=== PATIENT | male | born 1965 | race Caucasian/White ===

== ENCOUNTER 2021-10-15 06:11 | Observation (INO) ==
--- NOTE | 2021-10-01 14:39 | Anesthesiology Consultation ---
Date of Service October 01, 2021 Assessment & Plan (1) Encounter for pre-operative examination: - awaiting medical clearance, 10/07/21. - COVID screening: Per assessment on 10/01/2021: Travel screen negative, no known COVID-19 positive contacts or current COVID-19 related symptoms in past 2 weeks. Surgeon arranging preop COVID testing, scheduled 10/13/2021. Awaiting results. Chart Review Chart Review: Pending: Refer to Additional Notes / Consult section and Patient seen in Pre Admission Testing Teaching & Discussion Pre-Anesthesia Teaching/Discussion Notes: Instructed NPO after midnight before surgery, except medications with 15 cc of water. Medication instructions provided according to the PAT guidelines. History Surgery Operation Date: 10/15/21 11:05 Proposed Procedures p C5-C7 Anterior Cervical Discectomy and Fusion Spinal Cord Monitoring - Russ Dawson DO Height/Weight Height: 5 ft 9 in Weight: 96 kg Allergies Allergy/AdvReac Type Severity Reaction Status Date / Time No Known Allergies Allergy Verified 09/28/21 07:33 Medications Home Medications Medication Instructions Recorded Confirmed Last Taken No Known Home Medications 09/28/21 09/28/21 Unknown Additional Notes: No supplements or OTC medications. Past Medical History Medical History (Updated 10/04/21 @ 08:09 by Megan Lee PA-C) Degenerative disc disease Diverticular disease History of COVID-30 May 2021 > not hospitalized, mild symptoms Sleep apnea suspected per pt, heavy snoring, denies witnessed apneas or sleep study Small bowel obstruction history of SBOs Patient denies h/o stroke, seizures, heart attack, heart failure, DM, HTN, blood clots or blood transfusions. Exercise / Class Metabolic Activity II 4-5 Yardwork/Stairs/Walk up hill (denies CP or SOB with 1 FOS) Past Family History Family History Mother Diabetes Past Surgical History Surgical History History of appendectomy History of colon resection 10 inches removed due to diverticulitis History of colonoscopy History of tooth extraction Past Anesthesia History No Hx of Anesthesia Complications and No Family Hx of Anesthesia Complications History of PONV No Hx of PONV and No Hx of Motion Sickness Social History Smoking Status: Former smoker tobacco type: smokeless tobacco Do You Dip or Chew Tobacco: Yes (advised npo status) Smoking End Date: 25 yrs Hx Alcohol Use: No Hx Substance Use: No substance use type: does not use Review of Systems Patient denies chest pain, shortness of breath, dyspnea on exertion, reflux, fever, chills, cough, wheezing, or palpitations. Physical Exam Vital Signs Vitals BP 128/83 P 61 TEMP 98.1 SP02 96% on RA RESP 17 Physical Full cervical extension range of motion without pain TMD 3.5 finger breaths Mallampati Score 3 Dentition: intact, multiple missing teeth lower bilat and one upper left side, one chipped tooth-left lower back; denies loose teeth, caps/crowns, implants or bridges Lungs: normal respiratory effort. Clear throughout to auscultation, no adventitious breath sounds Cardiac: regular rate and rhythm, no murmurs noted Carotid arteries: negative bruit bilat Lab Results Anesthesia Preop Results Results Anesthesia Widget: WBC 6.28 K/uL (4.8-10.8) 10/01/21 Hgb 14.9 g/dL (14.0-18.0) 10/01/21 Hct 43.7 % (42-52) 10/01/21 Plt 269 K/uL (130-400) 10/01/21 Na 139 mmol/L (136-145) 10/01/21 K 3.9 mmol/L (3.5-5.1) 10/01/21 Cl 104 mmol/L (98-107) 10/01/21 CO2 29 mmol/L (21-32) 10/01/21 BUN 12 mg/dl (6-23) 10/01/21 Creat 1.00 mg/dl (0.6-1.4) 10/01/21 Glucose Level 101 mg/dl (70-99(Fasting)) H 10/01/21 PT 10.7 Seconds (9.0-12.0) 10/01/21 PTT 26.8 Seconds (21.0-31.0) 10/01/21 INR 1.0 (0.9-1.1) 10/01/21 Urine Color Yellow 10/01/21 Urine Appearance Clear (Clear) 10/01/21 Urine pH 5.5 (4.5-7.5) 10/01/21 Urine Specific [place] 1.015 (1.000-1.030) 10/01/21 Urine Protein Negative (Negative) 10/01/21 Urine Glucose (UA) Negative (Negative) 10/01/21 Urine Ketones Negative (Negative) 10/01/21 Urine Blood Negative (Negative) 10/01/21 Urine Nitrite Negative (Negative) 10/01/21 Urine Bilirubin Negative (Negative) 10/01/21 Urine Urobilinogen Negative (Negative) 10/01/21 Urine Leukocyte Esterase Negative (Negative) 10/01/21 Blood Type O Positive 10/01/21 Antibody Screen NEGATIVE 10/01/21 Testing Electrocardiogram Date: 10/01/21 Sinus bradycardia, rate 55 bpm Incomplete RBBB Chest X-Ray Date: 10/01/21 The cardiomediastinal silhouette is unremarkable. The lungs and pleural spaces are clear. There is no pneumothorax. The bony thorax appears intact. IMPRESSION: No active disease in the chest.
[~2021-10-15 06:11] MED LIST: ACETAMINOPHEN 500 MG TAB PO SCH; CeleBREX 200 MG CAP PO SCH; GABAPENTIN 600 MG DOSE PO SCH; LACTATED RINGER'S 1,000 ML IV SCH; ceFAZolin 2000MG 2,000 MG/15 ML SYR IV SCH
[2021-10-15] MEDS ORDERED: PROPOFOL IV EMULSION 10 MG/ML 20 ML VIAL IV ONE (06:44)
[2021-10-15] MEDS ORDERED: ROCURONIUM BROMIDE 10 MG/ML 5 ML VIAL IV ONE (06:44)
[2021-10-15] MEDS ORDERED: ONDANSETRON INJ 2 MG/ML 2 ML VIAL ONE (06:44)
[2021-10-15] MEDS ORDERED: MIDAZOLAM HCL 1 MG/ML 2ML VIAL ONE (06:44)
[2021-10-15] MEDS ORDERED: DEXAMETHASONE SOD INJ 4 MG/ML VIAL ONE (06:44)
[2021-10-15] MEDS ORDERED: HYDROmorphone INJ 2 MG/ML SYR/VIAL ONE (06:44)
[2021-10-15] MEDS ORDERED: NEOSTIGMINE METHYLSULFATE 1 MG/ML 10ML VIAL ONE (06:44)
[2021-10-15] MEDS ORDERED: SUCCINYLCHOLINE CHLORIDE 20 MG/ML 10 ML VIAL IV ONE (06:44)
[2021-10-15] MEDS ORDERED: fentaNYL citrate 100 MCG/2 ML VIAL ONE (06:44)
[2021-10-15] MEDS ORDERED: GLYCOPYRROLATE 0.2 MG/ML VIAL ONE (06:44)
[2021-10-15] MEDS ORDERED: LIDOCAINE 2% 2 ML VIAL/AMP(20MG/ML) INFIL ONE (06:44)
[2021-10-15] MEDS ORDERED: ONDANSETRON INJ 2 MG/ML 2 ML VIAL IV PRN ×2 (06:54→11:16)
[2021-10-15] MEDS ORDERED: ePHEDrine sulfate 50 MG/ML AMP IV PRN (06:54)
[2021-10-15] MEDS ORDERED: ATROPINE SULFATE 0.1 MG/ML 10ML SYR IV PRN (06:54)
--- NOTE | 2021-10-15 07:34 | History & Physical Bridge Note ---
Date of Service October 15, 2021 History & Physical Bridge Note I have examined the patient, reviewed the History & Physical and in the interval since the performance of the History & Physical I have noted the following changes of clinical significance: no changes noted
--- NOTE | 2021-10-15 07:36 | History & Physical Report ---
Date of Service October 15, 2021 Assessment & Plan (1) Cervical stenosis of spinal canal: Plan: C5-C7 anterior cervical discectomy and fusion History of Present Illness Chief Complaint: Neck and bilateral arm pain Primary Care Provider: Ras Bose DO This is a 56-year-old male presents with current persistent neck and arm pain after failed course of nonoperative care is here for surgical invention. Allergies Allergy/AdvReac Type Severity Reaction Status Date / Time No Known Allergies Allergy Verified 10/15/21 06:35 Home Medications Medication Instructions Recorded Confirmed Type No Known Home Medications 09/28/21 09/28/21 History Past Med/Surg History Medical History (Updated 10/15/21 @ 07:36 by Russ Dawson DO) Degenerative disc disease Diverticular disease History of COVID-30 May 2021 > not hospitalized, mild symptoms Sleep apnea suspected per pt, heavy snoring, denies witnessed apneas or sleep study Small bowel obstruction history of SBOs Surgical History History of appendectomy History of colon resection 10 inches removed due to diverticulitis History of colonoscopy History of tooth extraction Family History Mother Diabetes Social History Smoking Status: Former smoker Smoking End Date: 25 yrs; Second Hand Exposure: No; Do You Dip or Chew Tobacco: Yes (advised npo status); Tobacco Cessation Education Requested by Patient: No Hx Alcohol Use: No Hx Substance Use: No Preferred Language: [place] Islander Communication Ability: Effective Anchor Tack Puller Required: No Beliefs That Will Affect Care: None Current Living Situation: Spouse Other Information That Helps Us Care for You: No Feels Safe at Home: Yes Safety Concerns: Feels Safe At This Time Assistive Devices: Contacts and Glasses Physical Exam Physical Exam: Patient is alert and oriented Heart regular rate and rhythm Lungs clear Results & Data ([facility]) Vital Signs (Past 12 Hours) Vital Signs Temp Pulse Resp BP Pulse Ox 10/15/21 06:40 36.6 C 61 20 134/80 95
[2021-10-15] MEDS ORDERED: ceFAZolin 330 MG/ML 1 GM VIAL ONE (07:37)
[2021-10-15] MEDS ORDERED: FLOSEAL HEMOSTATIC MATRIX 10ML TOP ONE (09:15)
--- NOTE | 2021-10-15 09:31 | Operative Report ---
Post Operative Report Pre & Post Diagnosis Operation Date: 10/15/21 07:45 Pre-Op Diagnosis: Spinal Stenosis, Cervical Region Post-Op Diagnosis: Spinal Stenosis, Cervical Region I identified the patient and participated in the time-out.: Yes Procedure Operation Date: 10/15/21 07:45 Actual Procedures #1 anterior cervical discectomy with bilateral foraminotomies C5-C6 C6-C7. #2 anterior cervical arthrodesis C5-C6 C6-C7. #3 placement 8 mm spiral cage at C5- C6 and 7 mm spiral cage at C6-C7 both filled with I factor. #4 application of 5 complete and screws from C5-C7. Surgeon Russ Dawson, DO [employer] Administrator Lon Tracey Estimated Blood Loss 10 Findings Consistent with Post-Op Diagnosis Specimens None Indications This is a 56-year-old male who presents with current persistent cervical radiculopathy. After extensive course of nonoperative care is here for surgical invention. Description of Procedure Patient was met with identified informed consent obtained. Patient was then taken to the operative suite underwent a patient placed in supine position just table at [place] head of acquisitions. All bony prominences well-padded eyes inspected to ensure no external pressure placed upon them. This point the anterior cervical spine was prepped and draped in a sterile fashion. The assistance of fluoroscopy identified the C6 vertebral body and a transverse incision was placed along the right anterior aspect of the cervical spine overlying his region. Blunt dissection with assistance of bipolar electrocautery was performed down to and exposing the anterior cervical spine from C5-C7. Several 10 retractors placed. Then performed a complete discectomy at C5-C6 out to the uncovertebral joints bilaterally. [place] distracting pins were utilized to assist in visualization. Removed all posterior annular fibers and longitudinal ligament bilateral foraminotomies performed. Endplates burred to subcortical bleeding bone and a 8 mm spiral cage with I factor tapped in position. Then proceeded to C6-C7. Complete discectomy was again performed out to the uncovertebral's bilaterally. [place] distracting pins again utilized. Removed all posterior annular fibers longitudinal ligament bilateral foraminotomies performed. Endplates burred to subcortically bone and 7 mm spiral cage filled I factor tapped in position. Distracting apparatus was removed all anterior osteophytes burred to smooth cortical surface and a 5 complete screws applied with the assistance of fluoroscopy. The incision was then copiously irrigated explored to ensure no damage to surrounding structures remaining bleeding. 10 round DEWAYNE drain inserted. The incision was then closed with 2 Vicryl in a fashion of 4 Monocryl for final skin closure. Steri-Strip sterile dressings placed. Patient waken taken to PACU stable condition. Please note spinal cord monitoring was utilized at the procedure no changes noted. Lastly Lon Tracey was present at the entire surgery and while the patient positioning complex portions of the surgery and final skin closure. I attest to the content of the Intraoperative Record and any orders documented therein. Any exceptions are noted below.
--- NOTE | 2021-10-15 09:47 | Fluoroscopy Report ---
FL cervical 2-3V HISTORY: 56 years-old Male C5-7 ACDF COMPARISON: None TECHNIQUE: 2 spot fluoroscopic images of the cervical spine were obtained utilizing 11.9 seconds fluo roscopy time FINDINGS: Anterior plate and screw fusion with discectomy noted at what appears to be the C5-C7 levels. C6 and C7 are suboptimally visualized on the lateral projection secondary to positioning. The visualized grupo dware appears intact. A radiopaque surgical sponge projects anterior to the surgical levels. Endotrac heal tube is present. IMPRESSION: Fluoroscopic assistance as above. ACT 112: Negative or not required by law. The above report was generated using voice recognition software. It may contain grammatical, syntax o r spelling errors. Electronically signed by: Cornelio Fitzpatrick M.D. 10/15/2021 9:46 AM
[2021-10-15] MEDS: fentaNYL citrate 100 MCG/2 ML VIAL IV PRN ×3 (09:57→10:24)
--- NOTE | 2021-10-15 10:38 | Anesthesiology Progress Note ---
Date of Service October 15, 2021 Anesthesia Post Procedure Vital Signs Vital Signs: Temp Pulse Resp BP Pulse Ox 10/15/21 10:25 50 L 16 136/90 98 10/15/21 10:15 46 L 16 157/90 H 97 10/15/21 10:05 46 L 16 165/96 H 98 10/15/21 09:55 47 L 16 177/90 H 96 10/15/21 09:45 97.2 F L 48 L 18 159/94 H 97 10/15/21 06:40 97.9 F 61 20 134/80 95 Transfer of Care Handoff Completed per policy Notes Mental Status: alert / awake / arousable and participated in evaluation Patient Amnestic to Procedure: Yes Nausea / Vomiting: adequately controlled Pain: adequately controlled Airway Patency, RR, SpO2: stable & adequate BP & HR: stable & adequate Hydration State: stable & adequate Anesthetic Complications: no major complications apparent and Pt Satisfied with anesthetic care
[2021-10-15] MEDS ORDERED: RACEPINEPHRINE 2.25% NEBU SOLN 0.5 ML VIAL INH PRN (11:16)
[2021-10-15] MEDS ORDERED: hydrOXYzine HCl 25 MG TAB PO PRN (11:16)
[2021-10-15] MEDS ORDERED: FAMOTIDINE 20 MG TAB PO PRN (11:16)
[2021-10-15] MEDS ORDERED: NALOXONE HCL 0.4 MG/1 ML VIAL/CARP IV PRN (11:16)
[2021-10-15] MEDS ORDERED: HYDROmorphone INJ 0.5 MG/0.5 ML SYR IV PRN (11:16)
[2021-10-15] MEDS ORDERED: MAGNESIUM HYDROXIDE SUSP 30 ML UDC PO PRN (11:16)
[2021-10-15] MEDS ORDERED: ACETAMINOPHEN 1,000 MG/100 ML VIAL IV PRN (11:16)
[2021-10-15] MEDS ORDERED: DO NOT ADMINISTER FLU VACCINE PRN (11:16)
[2021-10-15] MEDS ORDERED: HYDROmorphone INJ 1 MG/ML SYRINGE IV PRN (11:16)
[2021-10-15] MEDS ORDERED: dexAMETHasone 8 MG in SYRINGE 0 ML IV PRN (11:16)
[2021-10-15] MEDS ORDERED: ALUMINUM/MAGNESIUM SUSP 30 ML UDC PO PRN (11:16)
[2021-10-15] MEDS ORDERED: DO NOT ADMINISTER PNEUMOCOCCAL VACCINE PRN (11:16)
[2021-10-15] MEDS ORDERED: PROMETHAZINE HCL 12.5 MG in SODIUM CHLORIDE 0.9% 50 ML IV PRN (11:16)
[2021-10-15] MEDS ORDERED: ONDANSETRON 4 MG OD TAB PO PRN (11:16)
[2021-10-15] MEDS ORDERED: METOCLOPRAMIDE HCL INJ 5 MG/ML 2 ML VIAL IV PRN (11:16)
[2021-10-15] MEDS ORDERED: LORazepam 2 MG/1 ML VIAL IV PRN (11:16)
[2021-10-15] MEDS ORDERED: bisacodyL 10 MG SUPP PR PRN (11:16)
[2021-10-15] MEDS ORDERED: SOD PHOSPHATE/SOD BIPHOSPHATE ENEMA 132 ML BTL PR PRN (11:16)
[2021-10-15] MEDS ORDERED: diphenhydrAMINE Capsule 25 MG CAP PO PRN (11:16)
[2021-10-15] MEDS ORDERED: LORazepam 0.5 MG TAB PO PRN (11:16)
[2021-10-15] MEDS: LACTATED RINGER'S 1,000 ML IV SCH ×2 (13:14→20:41)
[2021-10-15] MEDS: oxyCODONE HCL IR 5 MG TAB (IMMEDIATE RELEASE) PO PRN ×2 (14:12→20:36)
[2021-10-15] MEDS: traMADol HCL 50 MG TABLET PO PRN ×2 (15:15→19:04)
[2021-10-15] MEDS: ceFAZolin 2000MG 2,000 MG/15 ML SYR IV SCH (16:47)
[2021-10-15] MEDS ORDERED: DOCUSATE SODIUM/SENNA 50/8.6MG TAB PO SCH (21:00)
[2021-10-16] MEDS: ceFAZolin 2000MG 2,000 MG/15 ML SYR IV SCH (00:02)
[2021-10-16] MEDS: ACETAMINOPHEN 500 MG TAB PO PRN ×2 (00:02→08:51)
[2021-10-16] MEDS: traMADol HCL 50 MG TABLET PO PRN ×3 (00:03→11:43)
[2021-10-16] MEDS ORDERED: POLYETHYLENE (MIRALAX) 17 GM PACK PO SCH (06:00)
[2021-10-16] MEDS: LACTATED RINGER'S 1,000 ML IV SCH (06:22)
[2021-10-16 06:57] LABS: Basophils # (auto) 0.01 K/uL (0-0.2); Basophils % (auto) 0.1 %; Eosinophils # (auto) 0.01 K/uL (0-0.5); Eosinophils % (auto) 0.1 %; Hemoglobin 14.3 g/dL (14.0-18.0); Immature Granulocytes # (auto) 0.05 K/uL (0.00-0.02); Immature Granulocytes % (auto) 0.3 %; Lymphocytes # (auto) 1.24 K/uL (1.2-3.4); Lymphocytes % (auto) 7.9 %; Mean Corpuscular Hemoglobin 31.2 pg (25-34); Mean Corpuscular Hgb Conc 34.9 g/dL (32-36); Mean Corpuscular Volume 89.5 fL (80-100); Monocytes # (auto) 1.01 K/uL (0.11-0.59); Monocytes % (auto) 6.4 %; Neutrophils # (auto) 13.42 K/uL (1.4-6.5); Neutrophils % (auto) 85.2 %; Platelet Count 261 K/uL (130-400); RDW Coefficient of Variation 12.7 % (11.5-14.5); RDW Standard Deviation 41.2 fL (36.4-46.3); Red Blood Count 4.58 M/uL (4.7-6.1); White Blood Count 15.74 K/uL (4.8-10.8)
[2021-10-16 07:26] LABS: BUN Creatinine Ratio 15.9 (10-20); Calcium 8.8 mg/dl (8.5-10.1); Est GFR (African American) 113.8 ml/min; Est GFR (Non-African American) 98.2 ml/min; Potassium 3.7 mmol/L (3.5-5.1)
[2021-10-16] MEDS ORDERED: dexAMETHasone 6 MG in SYRINGE 0 ML IV SCH (09:00)
--- NOTE | 2021-10-16 11:22 | Discharge Summary ---
Date of Service October 16, 2021 Admission HPI Per Admitting Provider This is a 56-year-old male presents with current persistent neck and arm pain after failed course of nonoperative care is here for surgical invention. Principal Diagnosis Cervical spinal stenosis with radiculopathy Discharge Data Allergies Allergy/AdvReac Type Severity Reaction Status Date / Time No Known Allergies Allergy Verified 10/15/21 06:35 Procedures Performed Operation Date: 10/15/21 07:45 Actual Procedures p C5-C7 Anterior Cervical Discectomy and Fusion, Spinal Cord Monitoring(Not Applicable) - Russ Dawson DO Ordered Studies 10/15/21 07:45 [place] cervical 2-3V Routine Hospital Course (1) Cervical stenosis of spinal canal: Patient underwent anterior cervical discectomy and fusion tolerated this well was taken to the orthopedic floor postoperatively postop day 1 and swallowing well. No hoarseness. Notes improvement of his arm strength. Pain well controlled. Separately discharged home. Discharge orders instructions from chart for further review. Total Time Total Time Spent Total Time Spent (In Minutes): 20 minutes Discharge Plan Discharge Items Patient Disposition: Home - Self-Care Reason For Visit: Spinal Stenosis, Cervical Region Discharge Diagnosis: Cervical radiculopathy Activity: Per Instructions section Non-emergency contact: Primary Care Provider Call non-emergency contact if: you have any medication questions Follow-up/Referrals: Ras Bose DO [Primary Care Provider] - Diet: Regular Addtl Attending Provider Instructions: ACTIVITY RECOMMENDATIONS: SELF CARE INSTRUCTIONS AFTER CERVICAL FUSIONS 1. No smoking. Smoking drastically decreases the chance of a solid fusion. 2. No bending, lifting more than 5 pounds, or twisting (roll like a log when turning in bed). 3. You may shower 3 days after surgery. Thoroughly dry wound. Do not soak in the tub. 4. Cervical collar: Must be worn at all times including sleeping. You may remove the brace only to bath, eat and if you are sitting in a recliner. 5. Please walk as much as you can for exercise. Gradually increase the distance that you walk as your endurance increases. SPECIAL CARE INSTRUCTIONS: VERY IMPORTANT TO READ AND REVIEW A. Do not take any anti-inflammatory medications (i.e. Indocin, Advil, Aspirin, Naprosyn, Aleve, Motrin, etc.) as these may inhibit the chance of a solid fusion. Tylenol is okay to take. B. Your surgical incision has been closed with a cosmetic suture under the skin that will dissolve in about 6 weeks. In 14 days, you can use a pair of clean scissors and cut the suture that is left outside of the skin at the ends of your incision. C. Complications are uncommon, but please contact us if you have any signs or symptoms of: 1. wound infection (fever higher than 102.5 degrees F, redness, separation of wound, drainage, or increasing pain from the incision) 2. blood clots in legs (pain, swelling, redness and warmth in legs) 3. urinary tract infection (fever higher than 102.5 degrees, burning upon urination or increased frequency of urination) 4. nerve problems (inability to walk on your toes or heels, numbness, loss of bowel or bladder control) 5. any other symptoms that concern you. D. Please call the office at if you have any concerns or questions about your operation or recovery. MANAGING PAIN AFTER SPINAL SURGERY 1. Narcotic medication is intended for short-term use and will be provided for surgical pain. Surgical pain usually lasts for a period of 4-6 weeks. Narcotic medication includes Percocet, Vicodin, Darvocet, Tylenol #3 or Lortab. 2. Longer-term pain is more appropriately treated with non-narcotic medication such as Tylenol ES. 3. Muscle spasm is not appropriately treated with narcotics. Muscle relaxers such as Soma, Flexeril or Skelaxin can be used along with Tylenol ES. 4. Remember that we all live with some "aches and pains". This is not unusual or uncommon after an injury or as we get older. 5. We will provide appropriate medication within the normal guidelines of their prescribed use. We will also be very cautious and aware of potential abuse and extended duration of patients' medication needs. 6. Please allow 2-3 days to process refills. Prescriptions will not be mailed but must be picked up at the office. FOLLOW UP VISIT: Keep your scheduled follow-up appointment. Any questions, please call the office at . Pending Studies at Discharge: No Stand-Alone Forms: My [employer] [place], Smoking Cessation Medications and DC Order Prescriptions: New tramadol 50 mg tablet 50 mg PO Q6H PRN (Reason: pain, moderate) Qty: 30 RF: 0 oxycodone 5 mg tablet 5 mg PO Q6H PRN (Reason: pain, severe) Qty: 30 RF: 0 Discharge Orders: Discharge Order (Routine); Ordered 10/16/21 Ordered By: Russ Dawson Admission Data Admit Date/Time: 10/15/21 09:38 Attending Provider: Russ Dawson Admit Provider: Russ Dawson Primary Care Provider: Ras Bose
== END 2021-10-16 14:06 | disposition home or self-care (01) | DRG 473 ==
LOC: ASU 06:11 → 3E 09:38 → INTOOBSV 09:38